=== PATIENT | male | born 1955 | race Caucasian/White ===

== ENCOUNTER 2019-01-08 14:13 | Emergency (ER) | payer OTHER ==
[2019-01-08 15:16] VITALS: BP 128/72
--- NOTE | 2019-01-08 16:20 | UC ---
Shoulder Pain HPI - HPI Summary HPI Summary: 64 yo male with a painful right shoulder He is right handed acute onset yesterday trying to pull a large tarp over a load on flatbed pain with abduction - History of Current Complaint Chief Complaint: UCUpperExtremity Stated Complaint: WC-RT SHOULDER INJURY Time Seen by Provider: 01/08/19 16:09 Hx Obtained From: Patient Onset/Duration: Sudden Onset, Lasting Hours Timing: Constant Severity Initially: Moderate Severity Currently: Mild Location Of Pain: Is Diffuse Pain Intensity: 4 Pain Scale Used: 0-10 Numeric Character: Aching, Throbbing, Spasmodic Aggravating Factor(s): Movement, Abduction Alleviating Factor(s): Rest Associated Signs And Symptoms: Positive: Negative Related History: Occupational Injury, Dominant Hand Right - Allergies/Home Medications Allergies/Adverse Reactions: Allergies Allergy/AdvReac Type Severity Reaction Status Date / Time No Known Allergies Allergy Verified 01/08/19 15:07 Home Medications: Home Medications Atorvastatin* [Lipitor*] 20 mg PO 1700 01/08/19 [History Confirmed 01/08/19] Glipizide/Metformin HCl [Glipizide-Metformin 2.5-250 mg] 2 each PO BID 01/08/19 [History Confirmed 01/08/19] Ibuprofen TAB* [Advil TAB*] 600 mg PO Q6H PRN 01/08/19 [History Confirmed ] Latanoprost 0.005%* [Xalatan 0.005%*] 1 drop LEFT EYE QPM 01/08/19 [History Confirmed 01/08/19] Lisinopril TAB* [Prinivil TAB*] 5 mg PO DAILY 01/08/19 [History Confirmed ] PMH/Surg Hx/FS Hx/Imm Hx Previously Healthy: Yes Endocrine History: Diabetes Cardiovascular History: Hypertension - Surgical History Surgical History: Yes Surgery Procedure, Year, and Place: appy - Family History Known Family History: Positive: Unknown - patient is adopted - Social History Alcohol Use: Weekly Alcohol Amount: 3-4 drinks weekly Substance Use Type: None Smoking Status (MU): Never Smoked Tobacco Review of Systems All Other Systems Reviewed And Are Negative: Yes Constitutional: Positive: Negative Skin: Positive: Negative Eyes: Positive: Negative ENT: Positive: Negative Respiratory: Positive: Negative Cardiovascular: Positive: Negative Gastrointestinal: Positive: Negative Genitourinary: Positive: Negative Motor: Positive: Negative Neurovascular: Positive: Negative Musculoskeletal: Positive: Arthralgia Neurological: Positive: Negative Psychological: Positive: Negative Physical Exam Triage Information Reviewed: Yes Appearance: Well-Appearing, No Pain Distress, Well-Nourished Vital Signs: Initial Vital Signs Temp 97.4 F 01/08/19 15:11 Pulse 61 01/08/19 15:11 Resp 15 01/08/19 15:11 BP 128/72 01/08/19 15:11 Pulse Ox 97 01/08/19 15:11 Eyes: Positive: Conjunctiva Clear ENT: Positive: Hearing grossly normal. Negative: Nasal congestion, Nasal drainage, Trismus, Muffled voice, Hoarse voice Neck: Positive: Supple Respiratory: Positive: Lungs clear, Normal breath sounds, No respiratory distress, No accessory muscle use Cardiovascular: Positive: No Murmur, Pulses Normal, Brisk Capillary Refill Musculoskeletal: Positive: ROM Limited @ - right shoulder...slow and painful abduction, pain with internal rotation, Other: - n/v intact Psychological Exam: Normal Skin Exam: Normal Diagnostics - Radiology No standard instances Radiology Interpretation Completed By: Radiologist Summary of Radiographic Findings: Calcific tendinitis of the distal supraspinatus tendon. Degenerative changes. of the glenohumeral joint. No fracture is noted. Shoulder Course/Dx - Differential Dx/Diagnosis Provider Diagnosis: Calcific tendinitis of right shoulder Discharge - Sign-Out/Discharge Documenting (check all that apply): Patient Departure All imaging exams completed and their final reports reviewed: Yes - Discharge Plan Condition: Stable Disposition: HOME Patient Education Materials: Calcific Tendinitis (ED) Forms: *Work Release Referrals: Mark Kaiser MD [Medical Doctor] - 4 Days Additional Instructions: you have a calcific tendonitis can not rule out a partial rotator cuff tear heat massage ibuprofen - Billing Disposition and Condition Condition: STABLE Disposition: Home
== END 2019-01-08 17:09 | disposition home or self-care (01) ==
LOC: UCCORT 14:13
DX: M75.31 Calcific tendinitis of right shoulder (principal); E11.9 Type 2 diabetes mellitus without complications; I10 Essential (primary) hypertension; Z79.84 Long term (current) use of oral hypoglycemic drugs; Z79.899 Other long term (current) drug therapy
CPT/HCPCS: 99211; G0463